=== PATIENT | female | born 2000 | race Hispanic/Latino ===

== ENCOUNTER 2021-06-04 17:14 | Emergency (ER) | payer OTHER, SELFPAY ==
[2021-06-04 18:09] LABS: Urine Blood Trace-intact (Negative); Urine Glucose Negative (Negative); Urine Protein Negative (Negative); Urine Specific Gravity >=1.030 (1.005-1.030); Urine pH 5.5 (5.0-7.0)
[2021-06-04 18:14] LABS: Urine Specific Gravity/Preg >1.030 (1.005-1.030)
--- NOTE | 2021-06-04 19:16 | EDPHYS ---
Physician Documentation [facility] Name: Jannie Caro Age: 20 yrs Sex: Female : 2000 Arrival Date: 06/04/2021 Time: 17:18 Bed 23 Private MD: ED Physician Filippo Sorensen HPI: 06/04 18:08 This 20 yrs old Female presents to ER via Ambulatory with complaints of Back jmm Pain, Urinary Problem. 18:08 The patient presents with pain that is acute. Onset: The symptoms/episode jmm began/occurred gradually, 1 week(s) ago. The pain does not radiate. Associated signs and symptoms: Pertinent positives: nausea, Pertinent negatives: dysuria, fever, headache, hematuria, incontinence, numbness, vomiting, weakness. Modifying factors: The patient symptoms are alleviated by nothing, the patient symptoms are aggravated by any movement. This is a 20-year-old female with no chronic medical history presents emerge department with complaints of lower back pain along with some nausea which has been ongoing for the past week. Patient denies fever, vaginal discharge, denies urinary frequency increase, denies dysuria, but denies vomiting but states having some nausea, denies fever. Denies lower extremity pain. 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 - Social history:: Smoking status: Reported history of juuling and/or vaping. ROS: 18:08 Constitutional: Negative for fever, chills, and weight loss, Cardiovascular: Negative jmm for chest pain, palpitations, and edema, Respiratory: Negative for shortness of breath, cough, wheezing, and pleuritic chest pain. 18:08 Back: Positive for pain with movement. 18:08 All other systems are negative. Exam: 18:08 Constitutional: This is a well developed, well nourished patient who is awake, alert, jmm and in no acute distress. Head/Face: atraumatic. Eyes: EOMI, no conjunctival erythema appreciated ENT: Moist Mucus Membranes Neck: Trachea midline, Supple Chest/axilla: Normal chest wall appearance and motion. Cardiovascular: Regular rate and rhythm. No edema appreciated Respiratory: Normal respirations, no respiratory distress appreciated Abdomen/GI: Non distended, soft 18:08 Back: Bilateral lumbar paraspinal pain appreciated. 18:08 Musculoskeletal/extremity: ROM: intact in all extremities. 18:08 Skin: Appearance: Color: normal in color. 18:08 Neuro: Orientation: is normal, Mentation: is normal, Memory: is normal, Extensor pollicis longus intact bilaterally. 18:08 Psych: Behavior/mood is pleasant, cooperative. Vital Signs: 17:35 BP 128 / 65; Pulse 89; Resp 16 S; Temp 98.3(TE); Pulse Ox 97% on R/A; Height 5 ft. 2 aa5 in. (157.48 cm) (R); 18:11 BP 120 / 88; Pulse 81; Resp 22; Pulse Ox 99% on R/A; Pain 8/10; ld1 MDM: 19:13 Patient medically screened. dianna 19:14 Data reviewed: vital signs, nurses notes. Counseling: I had a detailed discussion with dianna the patient and/or guardian regarding: the historical points, exam findings, and any diagnostic results supporting the discharge/admit diagnosis, the need for outpatient follow up, to return to the emergency department if symptoms worsen or persist or if there are any questions or concerns that arise at home. 23:05 ED course: Patient is alert nontoxic in appearance in the ED. I do not suspect cord jmm compression, cauda equina, spinal abscess. Patient is afebrile. Patient has no complaints of dysuria, UA is normal, UPT is negative. Most likely musculoskeletal. Will treat with a oral muscle relaxers and patient otherwise given strict return precautions. Patient understood agrees plan of care.. 06/04 18:08 Order name: Urine Dipstick-Ancillary; Complete Time: 19:22 EDMS 06/04 18:10 Order name: Urine --Ancillary (enter results) em1 06/04 18:10 Order name: Urine --Ancillary; Complete Time: 19:22 EDMS Administered Medications: No medications were administered Disposition Summary: 06/04/21 19:15 Discharge Ordered Location: Home billie Condition: Stable billie Diagnosis - Low back pain billie Followup: dianna - With: Private Physician - When: 2 - 3 days - Reason: Recheck today's complaints, Continuance of care, Re-evaluation by your physician Discharge Instructions: - Discharge Summary Sheet jm - Acute Back Pain, Adult [facility] - Form - Excuse from Work, School, or Physical Activity [facility] Forms: - Medication Reconciliation Form [facility] - Thank You Letter [facility] - Antibiotic Education [facility] - Prescription Opioid Use [facility] Prescriptions: - orphenadrine citrate 100 mg Oral Tablet Sustained Release - take 1 tablet by ORAL route 2 times per day As needed; 20 tablet; Refills: 0, [facility] Product Selection Permitted Addendum: 06/07/2021 19:05 Co-signature as Attending Physician, Filippo Sorensen MD. p faustino Signatures: Dispatcher [employer] EDMS Filippo Sorensen MD MD pkl Mickail, Joel, PA PA Kira Desai, RN RN aa5
--- NOTE | 2021-06-04 19:16 | ER ---
Nurse's Notes [facility] Name: Jannie Caro Age: 20 yrs Sex: Female : 2000 Arrival Date: 06/04/2021 Time: 17:18 Bed 23 Private MD: Diagnosis: Low back pain Presentation: 06/04 17:35 Chief complaint: Patient states: low back pain that began 1 week ago on and off. Pt aa5 states "I think I have a kidney infection". Pt denies burning with urination but reports hx of UTIs. Coronavirus screen: At this time, the client does not indicate any symptoms associated with coronavirus-19. Ebola Screen: No symptoms or risks identified at this time. Initial Sepsis Screen: Does the patient meet any 2 criteria? No. Patient's initial sepsis screen is negative. Does the patient have a suspected source of infection? No. Patient's initial sepsis screen is negative. Risk Assessment: Do you want to hurt yourself or someone else? Patient reports no desire to harm self or others. Onset of symptoms was May 2021. 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 - Social history:: Smoking status: Reported history of juuling and/or vaping. Screenin:11 Abuse screen: Denies threats or abuse. Denies injuries from another. Nutritional ld1 screening: No deficits noted. Tuberculosis screening: No symptoms or risk factors identified. Fall Risk None identified. Assessment: 18:11 General: Appears in no apparent distress. comfortable, Behavior is cooperative, ld1 anxious. Pain: Complains of pain in left low back Pain does not radiate. Pain currently is 8 out of 10 on a pain scale. Quality of pain is described as pulling Pain began 2-3 days ago. Is intermittent. Neuro: Level of Consciousness is awake, alert, obeys commands, Oriented to person, place, time, situation, Appropriate for age. Cardiovascular: Capillary refill < 3 seconds Patient's skin is warm and dry. Respiratory: Airway is patent Respiratory effort is even, unlabored, Respiratory pattern is regular, symmetrical. GI: Abdomen is round non-distended. : Reports pain in left flank(s), Denies burning with urination. EENT: No signs and/or symptoms were reported regarding the EENT system. Derm: No signs and/or symptoms reported regarding the dermatologic system. Musculoskeletal: Reports pain in left trapezius and left low back. Vital Signs: 17:35 BP 128 / 65; Pulse 89; Resp 16 S; Temp 98.3(TE); Pulse Ox 97% on R/A; Height 5 ft. 2 aa5 in. (157.48 cm) (R); 18:11 BP 120 / 88; Pulse 81; Resp 22; Pulse Ox 99% on R/A; Pain 8/10; ld1 ED Course: 17:18 Patient arrived in ED. mr 17:34 Arm band placed on. aa5 17:37 Triage completed. aa5 18:04 Lele Tong PA is PHCP. [facility] 18:04 Filippo Sorensen MD is Attending Physician. [facility] 18:11 Patient has correct armband on for positive identification. Bed in low position. Call ld1 light in reach. Side rails up X2. Pulse ox on. NIBP on. Door closed. Noise minimized. Warm blanket given. 18:11 No provider procedures requiring assistance completed. ld1 18:14 Urine --Ancillary (enter results) Sent. ld1 18:45 Blaire Mascorro, CARRIE is Primary Nurse. ld1 19:45 IV discontinued. ld1 Administered Medications: No medications were administered Outcome: 19:15 Discharge ordered by . [facility] 19:44 Discharged to home ambulatory. ld1 19:44 Condition: stable 19:44 Discharge instructions given to patient, Instructed on discharge instructions, follow up and referral plans. medication usage, Prescriptions given X 1. 19:47 Patient left the ED. ld1 Signatures: Lele Tong PA PA jmm RiveraAliza mr Heath, Kira, RN RN aa5 Blaire Mascorro, CARRIE RN ld1
[2021-06-04 20:18] VITALS: TEMP 98.3
[2021-06-04 20:19] VITALS: BP 120/88; O2SAT 99
--- OUTSIDE RECORDS SUMMARY | 2021-06-08 18:16 | XMS REPORT | Continuity of Care Document ---
:2000 Author Organization [facility] t Address [address] [place] [address] Care Team Providers Name Role Phone TERESANORIS Attending Clinician Unavailable Carmela DAUGHERTY Attending Clinician Unavailable Edgar OLIVER Attending Clinician Unknown Attending Clinician Unavailable Doctor Unassigned, Name Attending Clinician Unavailable Payers Payer Name Policy Type Policy Number Effective Date Expiration Date S ource Problems Condition Condition Condition Status Onset Resolution Last Treating Co mments Source Name Details Category Date Date Treatment Clinician Date No known No known Disease Unive rs active active ity of problems problems [facility] Allergies, Adverse Reactions, Alerts Allergy Allergy Status Severity Reaction(s) Onset Inactive Treating Comm ents Source Name Type Date Date Clinician NO KNOWN Drug Active Univers ALLERGIE Class ity of S [facility] Social History Social Habit Start Date Stop Date Quantity Comments Source Sex Assigned At [facility] Smoking Status Start Date Stop Date Source Unknown if ever smoked Universit y [facility] Current every day smoker 2019-08-25 00:00:00 Uni [facility] Medications Ordered Filled Start Stop Current Ordering Indication Dosage Frequency Signature Comments Components Source Medication Medication Date Date Medication? Clinician (SIG) Name Name sulfamethox 2020- No [id number] 1{tbl} Take 1 Univers azole-trime 2- tablet by it y of thoprim 00:00: 05:59 mouth 2 [place] 800-160 mg 00 :00 (two) Medical per tablet times Branch daily for 7 days. Nitrofurant 2020- No [id number] 100mg Take 1 Univers oin&Nit. 30 - capsule by ity of [place] 00:00: 05:59 mouth 2 Luis Enrique as 100 mg 00 :00 (two) Medical capsule times Branch daily with meals for 5 days. Nitrofurant 2020- No [id number] 100mg Take 1 Univers oin&Nit. 30 -05 capsule by ity of [place] 00:00: 05:59 mouth 2 Luis Enrique as 100 mg 00 :00 (two) Medical capsule times Branch daily with meals for 5 days. phenazopyri 2017- Yes 200mg Take 1 Uni vers dine 200 mg 1-06 tablet by ity of tablet 00:00: mouth 3 [place] 00 (three) Medical times Branch daily. ondansetron Yes 4mg Take 1 Univ ers (ZOFRAN 1-06 tablet by ity of ODT) 4 mg 00:00: mouth [place] disintegrat 00 every 8 Medic al ing tablet (eight) Branch hours as needed for Nausea and Vomiting (N/V). phenazopyri 2020- No 200mg Take 1 Un terra dine 200 mg 08-0130 tablet by it y of tablet 00:00: 00:00 mouth 3 [place] 00 :00 (three) Medical times Branch daily. ondansetron 2020- No 4mg Take 1 Uni vers (ZOFRAN 08-01-30 tablet by ity of ODT) 4 mg 00:00: 00:00 mouth [place] disintegrat 00 :00 every 8 Medic al ing tablet (eight) Branch hours as needed for Nausea and Vomiting (N/V). phenazopyri 2020- No 200mg Take 1 Un terra dine 200 mg 08-01-30 tablet by it y of tablet 00:00: 00:00 mouth 3 [place] 00 :00 (three) Medical times Branch daily. ondansetron 2020- No 4mg Take 1 Uni vers (ZOFRAN 08-01-30 tablet by ity of ODT) 4 mg 00:00: 00:00 mouth [place] disintegrat 00 :00 every 8 Medic al ing tablet (eight) Branch hours as needed for Nausea and Vomiting (N/V). Immunizations Ordered Filled Immunization Date Status Comments [facility] e Immunization Name Name Varicella 2007-02-19 Completed [facility] (varivax)(chicken 00:00:00 [place] M edical pox) Branch HEPATITIS A 2007-02-19 Completed [facility] 00:00:00 [place] [facility] Varicella 2007-02-19 Completed University of (varivax)(chicken 00:00:00 [place] [facility] pox) Branch HEPATITIS A 2007-02-19 Completed University of 00:00:00 [facility] Varicella 2007-02-19 Completed University of (varivax)(chicken 00:00:00 [place] [facility] pox) Branch HEPATITIS A 2007-02-19 Completed University of 00:00:00 [facility] Vital Signs Vital Name Observation Time Observation Value Comments Source Systolic blood 2019-08-26 00:55:00 129 mm[Hg] Univer sity [facility] [place] Diastolic blood 2019-08-26 00:55:00 86 mm[Hg] Unive rsity [facility] [place] Heart rate 2019-08-26 00:55:00 78 /min [facility] Body temperature 2019-08-26 00:55:00 37 [facility] Respiratory rate 2019-08-26 00:55:00 17 /min [facility] Body height 2019-08-26 00:55:00 157.5 cm [facility] Body weight 2019-08-26 00:55:00 65.409 kg [facility] BMI 2019-08-26 00:55:00 26.37 kg/m2 [facility] Oxygen saturation in 2019-08-26 00:55:00 98 /min [facility] Arterial blood by [facility] Pulse oximetry [place] Procedures Procedure Date / Time Performed Performing Clinician Sourc e URINE CULTURE 2019-08-26 01:27:00 Leila Hernández [facility] POCT URINALYSIS 2019-08-26 00:56:00 Leila Hernández [facility] ASSIGNMENT OF BENEFITS 2019-08-26 00:31:53 Doctor Unassigned, No [facility] Encounters Start End Encounter Admission Attending Care Care Encounter Source Date/Time Date/Time Type Type Clinicians Facility Department ID 2019-09-27 2019-09-27 Outpatient Sarah VACA [facility] [id number] [facility] 10:15:00 10:15:00 [facility] 2019-09-16 2019-09-16 Outpatient Sarah DAUGHERTY [facility] [id number] Univers 18:00:00 19:13:57 MULUGETA [facility] 2019-08-25 2019-09-16 Urgent Edgar, Leila RUST [id number]. [id number] Univers 18:37:55 18:17:09 Care Unknown, Attending Health [id number] ity of Surgical [id number] Luis Enrique as Specialti [phone] Pa dical es [address] [place] 2019-08-25 2019-08-25 Orders Doctor BAIRON [id number] Univers 00:00:00 00:00:00 Only Unassigned, BG [id number] ity [facility] [id number] Luis Enrique as [phone] [address] Results Test Description Test Time Test Comments Results Result Comments Source POCT URINALYSIS W SPECIFIC GRAVITY 2019-08-26 01:03:00 Test Item Value Reference Range Interpretation Comme nts POCT U SP GRAV (test code = azo stained 1.005-1.025 3255) POCT PH U (test code = azo stained 5-8 3254) POCT U LEUK EST (test code azo stained Negative - Negative = 3263) POCT U NIT (test code = azo stained Negative - Negative 3262) POCT U PROT (test code = azo stained Negative - Negative 9) POCT U GLU (test code = azo stained Negative - Negative 6) POCT U KETONE (test code = azo stained Negative - Negative 3258) POCT U UROBILI (test code = azo stained 0.2-1 0) POCT U BILI (test code = azo stained Negative - Negative 3260) POCT U BLD (test code = azo stained Negative - Negative 7) POCT U COLOR (test code = azo stained 3266) POCT U APPEAR (test code = azo stained 3267) LOUIE (test code = LOUIE) accurate development and interpretation of all internal controlsazo stained [facility] SPECIFIC [id number] 01:03:00 Test Item Value Reference Range Interpretation Comments POCT U SP GRAV azo stained 1.005-1.025 (test code = 3255) POCT PH U (test azo stained 5-8 code = 3254) POCT U LEUK EST azo stained Negative - Negative (test code = 3263) POCT U NIT (test azo stained Negative - Negative code = 3262) POCT U PROT (test azo stained Negative - Negative code = 3259) POCT U GLU (test azo stained Negative - Negative code = 3256) POCT U KETONE azo stained Negative - Negative (test code = 3258) POCT U UROBILI azo stained 0.2-1 (test code = 3260) POCT U BILI (test azo stained Negative - Negative code = 3261) POCT U BLD (test azo stained Negative - Negative code = 3257) POCT U COLOR (test azo stained code = 3266) POCT U APPEAR azo stained (test code = 3267) LOUIE (test code = accurate development and LOUIE) interpretation of all internal controlsazo stained [facility]
== END 2021-06-04 19:47 | disposition home or self-care (01) ==
LOC: ER 17:14
DX: M54.50 Low back pain, unspecified (principal)
CPT/HCPCS: 81003; 81025; 99283

== ENCOUNTER 2021-06-30 17:06 | Emergency (ER) | payer SELFPAY ==
--- OUTSIDE RECORDS SUMMARY | 2021-06-30 17:08 | XMS REPORT | Continuity of Care Document ---
:2000 Author Organization [facility] t Address [address] [place] [address] Care Team Providers Name Role Phone TERESANORIS [...] rs active active ity of problems problems [facility] Allergies, Adverse Reactions, Alerts Allergy Allergy Status Severity Reaction(s) Onset Inactive Treating Comm ents Source Name Type Date Date Clinician NO KNOWN Drug Active Univers ALLERGIE Class ity of S [facility] Social History Social Habit Start Date Stop Date Quantity Comments Source Sex Assigned At [facility] Smoking Status Start Date Stop Date Source Unknown if ever smoked Universit y [facility] Current every day smoker 2019-08-25 00:00:00 Uni [facility] Medications Ordered Filled Start Stop Current Ordering Indication Dosage Frequency Signature Comments Components Source Medication Medication Date Date Medication? Clinician (SIG) Name Name sulfamethox 2020- No [id number] 1{tbl} Take 1 Univers azole-trime 2- tablet by it y of thoprim 00:00: 05:59 mouth 2 [place] 800-160 mg 00 :00 (two) Medical per tablet times Branch daily for 7 days. Nitrofurant 2020- No [id number] 100mg Take 1 Univers oin&Nit. 30 - capsule by ity of [place] 00:00: 05:59 mouth 2 Luis Enrique as 100 mg 00 :00 (two) Medical capsule times Branch daily with meals for 5 days. Nitrofurant 2020- No [id number] 100mg Take 1 Univers oin&Nit. 30 -05 [...] Immunizations Ordered Filled Immunization Date Status Comments [facility] e Immunization Name Name Varicella 2007-02-19 Completed [facility] (varivax)(chicken 00:00:00 [place] M edical pox) Branch HEPATITIS A 2007-02-19 Completed [facility] 00:00:00 [place] [facility] Varicella 2007-02-19 Completed University of (varivax)(chicken 00:00:00 [place] [facility] pox) Branch HEPATITIS A 2007-02-19 Completed University of 00:00:00 [facility] Varicella 2007-02-19 Completed University of (varivax)(chicken 00:00:00 [place] M [facility] pox) Branch HEPATITIS A 2007-02-19 Completed University of 00:00:00 [facility] Vital Signs Vital Name Observation Time Observation Value Comments Source Systolic blood 2019-08-26 00:55:00 129 mm[Hg] Univer sity [facility] Diastolic blood 2019-08-26 00:55:00 86 mm[Hg] Unive rsity [facility] Heart rate 2019-08-26 00:55:00 78 /min [facility] Body temperature 2019-08-26 00:55:00 37 [facility] Respiratory rate 2019-08-26 00:55:00 17 /min [facility] Body height 2019-08-26 00:55:00 157.5 cm [facility] Body weight 2019-08-26 00:55:00 65.409 kg [facility] BMI 2019-08-26 00:55:00 26.37 kg/m2 [facility] Oxygen saturation in 2019-08-26 00:55:00 98 /min [facility] Arterial blood by [facility] Pulse oximetry [place] Procedures Procedure Date / Time Performed Performing Clinician Sourc e URINE CULTURE 2019-08-26 01:27:00 Leila Hernández [facility] POCT URINALYSIS 2019-08-26 00:56:00 Leila Hernández [facility] ASSIGNMENT OF BENEFITS 2019-08-26 00:31:53 Doctor Unassigned, No [facility] Encounters Start End Encounter Admission Attending Care Care Encounter Source Date/Time Date/Time Type Type Clinicians Facility Department ID 2019-09-27 2019-09-27 Outpatient Sarah VACA [facility] [id number] [facility] 10:15:00 10:15:00 [facility] 2019-09-16 2019-09-16 Outpatient Sarah DAUGHERTY [facility] [id number] Univers 18:00:00 19:13:57 MULUGTEA [facility] 2019-08-25 2019-09-16 Urgent Edgar, Leila [facility] [id number]. [id number] Univers 18:37:55 18:17:09 Care Unknown, Attending Health [id number] ity of Surgical [id number] Luis Enrique as Specialti [phone] Sc dical es [address] [place] 2019-08-25 2019-08-25 Orders Doctor BAIRON [id number] Univers 00:00:00 00:00:00 Only Unassigned, BG [id number] ity of [place] [facility] [id number] Luis Enrique as [phone] [address] Results Test Description Test Time Test [...] and interpretation of all internal controlsazo stained [facility] [place] [facility] W SPECIFIC [id number] 01:03:00 Test Item Value Reference Range Interpretation [...] LOUIE) interpretation of all internal controlsazo stained [facility]
[2021-06-30 18:15] LABS: Urine Blood Negative (Negative); Urine Glucose Negative (Negative); Urine Protein Negative (Negative)
[2021-06-30 19:33] LABS: SARS-COV-2 RT PCR NEGATIVE (NEGATIVE)
--- NOTE | 2021-06-30 20:14 | ER ---
Nurse's Notes [facility] Name: Jannie Caro Age: 20 yrs Sex: Female : 2000 Arrival Date: 06/30/2021 Time: 17:08 Bed 9 Private MD: Diagnosis: Acute upper respiratory infection, unspecified Presentation: 06/30 17:33 Chief complaint: Patient states: itchy throat and dry cough sinus congestion/ headaches ss and body aches that began this yesterday. Coronavirus screen: Client denies travel out of the [place] in the last 14 days. Ebola Screen: Patient denies exposure to infectious person. Patient denies travel to an Ebola-affected area in the 21 days before illness onset. Initial Sepsis Screen: Does the patient meet any 2 criteria? No. Patient's initial sepsis screen is negative. Does the patient have a suspected source of infection? No. Patient's initial sepsis screen is negative. Risk Assessment: Do you want to hurt yourself or someone else? Patient reports no desire to harm self or others. Onset of symptoms was May 30, 2021. 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 - Social history:: Smoking status: Reported history of juuling and/or vaping. Assessment: 20:25 Reassessment: Patient not in room on arrival for discharge instructions. lp1 Vital Signs: 17:33 Pulse 81; Resp 14; Temp 97.2(TE); Pulse Ox 100% on R/A; Weight 65.77 kg; Height 5 ft. 2 ss in. (157.48 cm); Pain 0/10; 17:36 BP 128 / 82; ss 17:33 Body Mass Index 26.52 (65.77 kg, 157.48 cm) ss ED Course: 17:08 Patient arrived in ED. as 17:35 Triage completed. ss 17:35 Arm band placed on right wrist. ss 19:51 Russ Sylvester NP is PHCP. pm1 19:51 Nolan Delgado MD is Attending Physician. pm1 20:25 Ghada Norton, RN is Primary Nurse. lp1 20:26 No provider procedures requiring assistance completed. Patient did not have IV access lp1 during this emergency room visit. Administered Medications: No medications were administered Outcome: 20:13 Discharge ordered by . pm1 20:26 Discharged to home lp1 20:26 Condition: Patient left prior to discharge instructions given 20:27 Patient left the ED. lp1 Signatures: Sylvia Blevins Shelby, RN RN Ghada Norton, CARRIE RN lp1 Russ Sylvester NP TURBINE ASSEMBLER pm1
--- NOTE | 2021-06-30 20:14 | EDPHYS ---
Physician Documentation [facility] Name: Jannie Caro Age: 20 yrs Sex: Female : 2000 Arrival Date: 06/30/2021 Time: 17:08 Bed 9 Private MD: ED Physician Nolan Delgado HPI: 06/30 19:51 This 20 yrs old Female presents to ER via Ambulatory with complaints of pm1 Congestion, Back Pain, Sore Throat - itchy, Shortness Of Breath. 19:51 The patient or guardian reports Sore throat, sinus congestion and postnasal drainage, pm1 and cough. Onset: The symptoms/episode began/occurred yesterday. Severity of symptoms: in the emergency department the symptoms are unchanged. Modifying factors: The symptoms are alleviated by nothing, the symptoms are aggravated by nothing. Associated signs and symptoms: Pertinent positives: sore throat, Sinus and nasal congestion, postnasal drainage, Pertinent negatives: chest pain, fever, Shortness of breath, patient denies to me. The patient has not experienced similar symptoms in the past. The patient has not recently seen a physician. . 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 - Social history:: Smoking status: Reported history of juuling and/or vaping. ROS: 19:51 Eyes: Negative for injury, pain, redness, and discharge. pm1 19:51 Cardiovascular: Negative for chest pain, palpitations, and edema. 19:51 Abdomen/GI: Negative for abdominal pain, nausea, vomiting, diarrhea, and constipation, Back: Negative for injury and pain, MS/Extremity: Negative for injury and deformity, Skin: Negative for injury, rash, and discoloration, Neuro: Negative for headache, weakness, numbness, tingling, and seizure. 19:51 Constitutional: Positive for body aches, Negative for fever, poor PO intake. 19:51 ENT: Positive for sinus congestion, Post nasal drainage, Negative for drainage from ear(s), ear pain. 19:51 Respiratory: Positive for cough, Negative for shortness of breath. 19:51 All other systems are negative. Exam: 19:51 Constitutional: This is a well developed, well nourished patient who is awake, alert, pm1 and in no acute distress. Head/Face: Normocephalic, atraumatic. 19:51 Skin: Warm, dry with normal turgor. Normal color with no rashes, no lesions, and no evidence of cellulitis. MS/ Extremity: Pulses equal, no cyanosis. Neurovascular intact. Full, normal range of motion. 19:51 Eyes: Exam is negative for acute changes, Extraocular movements: no acute changes, Conjunctiva: no acute changes, no injection. 19:51 ENT: Exam is negative for acute changes, External ear(s): are unremarkable, Ear canal(s): are normal, TM's: no acute changes, Mouth: Lips: normal, moist, Oral mucosa: normal, pink and intact, moist, Posterior pharynx: Tonsils: bilaterally enlarged, with erythema, erythema, that is mild, exudate, is not appreciated, peritonsillar mass, is not appreciated, pooling of secretions, is not appreciated. 19:51 Cardiovascular: Exam negative for acute changes, Rate: normal, Rhythm: regular, Pulses: no pulse deficits are appreciated. 19:51 Respiratory: Exam negative for acute changes, respiratory distress, shortness of breath, Breath sounds: are clear throughout. 19:51 Neuro: Exam negative for acute changes, Orientation: is normal, Mentation: is normal, Motor: is normal, moves all fours. Vital Signs: 17:33 Pulse 81; Resp 14; Temp 97.2(TE); Pulse Ox 100% on R/A; Weight 65.77 kg; Height 5 ft. 2 ss in. (157.48 cm); Pain 0/10; 17:36 BP 128 / 82; ss 17:33 Body Mass Index 26.52 (65.77 kg, 157.48 cm) MDM: 20:04 Patient medically screened. pm1 20:12 Data reviewed: vital signs. Data interpreted: Pulse oximetry: on room air is 100 %. pm1 Interpretation: normal. Counseling: I had a detailed discussion with the patient and/or guardian regarding: the historical points, exam findings, and any diagnostic results supporting the discharge/admit diagnosis, lab results, the need for outpatient follow up, to return to the emergency department if symptoms worsen or persist or if there are any questions or concerns that arise at home. 20:12 ED course: Offered patient medications for her symptoms. Patient refused and plans to pm1 use OTC as needed. 06/30 17:37 Order name: COVID-19/FLU A+B (Document "Date of Onset" if Symptomatic) ss 06/30 17:37 Order name: Strep ss 06/30 17:37 Order name: COVID-19/FLU A+B; Complete Time: 19:51 EDMS 06/30 17:37 Order name: Group A Streptococcus Rapid Sc; Complete Time: 19:51 EDMS 06/30 18:15 Order name: Urine Dipstick-Ancillary; Complete Time: 19:51 EDMS 06/30 18:15 Order name: Urine --Ancillary (enter results) cs9 06/30 18:17 Order name: Urine --Ancillary; Complete Time: 19:51 EDMS 06/30 19:33 Order name: Throat Culture EDMS Administered Medications: No medications were administered Disposition: 07/01 04:35 Co-signature as Attending Physician, Nolan Delgado MD. [email or web address] Disposition Summary: 06/30/21 20:13 Discharge Ordered Location: Home pm1 Problem: new pm1 Symptoms: have improved pm1 Condition: Stable pm1 Diagnosis - Acute upper respiratory infection, unspecified pm1 Followup: pm1 - With: Emergency Department - When: As needed - Reason: Worsening of condition Followup: pm1 - With: Private Physician - When: 2 - 3 days - Reason: Recheck today's complaints, Continuance of care, Re-evaluation by your physician Discharge Instructions: - Discharge Summary Sheet pm1 - Upper Respiratory Infection, Adult pm1 Forms: - Medication Reconciliation Form pm1 - Thank You Letter pm1 - Antibiotic Education pm1 - Work release form pm1 - Prescription Opioid Use pm1 Signatures: Dispatcher [employer] EDJeannie Wadedll RN RN ss Marinas, Patrick, MATT FIRE PROTECTION ENGINEERING TECHNICIAN pm1 Nolan Delgado MD MD [email or web address] Corrections: (The following items were deleted from the chart) 06/30 22:24 19:51 This 20 yrs old Female presents to ER via Ambulatory with complaints of pm1 Congestion, Back Pain, Sore Throat - itchy, Shortness Of Breath. pm1
[2021-06-30 20:32] VITALS: TEMP 97.2; O2SAT 100
[2021-06-30 20:33] VITALS: BP 128/82
== END 2021-06-30 20:27 | disposition home or self-care (01) ==
LOC: ER 17:06
DX: J06.9 Acute upper respiratory infection, unspecified (principal); Z20.822 Contact with and (suspected) exposure to COVID-19
CPT/HCPCS: 0240U; 81003; 81025; 87070; 87081; 99281